=== PATIENT | female | born 2000 | race Two or more races ===

== ENCOUNTER 2024-10-25 00:43 | Emergency (ER) | payer MEDICAID, SELFPAY ==
[2024-10-25 00:44] VITALS: BMI 25.4
[2024-10-25 01:09] VITALS: BP 113/68; PULSE 125; RESP 18; TEMP 37.6; O2SAT 98
[2024-10-25] MEDS: ACETAMINOPHEN 500 MG TABLET PO (01:38)
[2024-10-25] MEDS: OSELTAMIVIR 75 MG CAPSULE PO (01:38)
--- NOTE | 2024-10-25 02:30 | PD.EDURI ---
Upper Respiratory Inf. RME/HPI General Chief Complaint: General Adult/Misc Complain Stated Complaint: LOWER BACK PAIN, FEVER,SORE THROAT Time Seen by Provider: 10/25/24 01:24 Arrival date/time: 10/25/24 00:43 24F with no significant PMH presents to ED with several days of cough, sore throat, and fevers/chills. When she coughs, her back hurts. Patient is currently , but denies SOB, dysuria, vaginal bleeding, ab/pelvic pain, and diarrhea. Limitations: no limitations Related Data Home Medications ?Medication ?Instructions ?Recorded ?Confirmed prenat.vits,teri,xbt-orst-frsgv 1 tab PO QDAY 05/20/21 05/20/21 Previous Rx's ?Medication ?Instructions ?Recorded acetaminophen 325 mg tablet (Mapap 650 mg (2 x 325 mg) PO Q4H PRN See 05/22/21 (acetaminophen)) Comments #30 tabs ibuprofen 400 mg tablet 800 mg (2 x 400 mg) PO Q8H PRN See 05/22/21 Comments #30 tabs oseltamivir 75 mg capsule (Tamiflu) 75 mg PO BID 5 days #10 caps 10/25/24 Allergies Allergy/AdvReac Type Severity Reaction Status Date / Time No Known Allergies Allergy Verified 05/20/21 03:06 Review of Systems Review of Systems Systems Reviewed: All systems reviewed, normal except as documented Constitutional Constitutional: Reports system reviewed and no additional complaints, except as documented, Reports as per HPI, Reports chills, Reports fever(s) and Denies headache(s) ENT Ears, Nose, Mouth, and Throat: Denies disequilibrium and Denies headache(s) Cardiovascular Cardiovascular: Reports system reviewed and no additional complaints, except as documented, Denies chest pain and Denies dyspnea Respiratory Respiratory: Reports system reviewed and no additional complaints, except as documented, Reports as per HPI, Reports cough and Denies dyspnea Gastrointestinal Gastrointestinal: Reports system reviewed and no additional complaints, except as documented, Denies abdominal pain, Denies nausea and Denies vomiting Musculoskeletal Musculoskeletal: Reports as per HPI and Reports back pain Neurologic Neurologic: Reports system reviewed and no additional complaints, except as documented, Denies confusion, Denies disequilibrium and Denies headache(s) Psychiatric Psychiatric: Denies confusion Past Medical History Past Medical History NEUROLOGIC: Negative Neurological Disorders CARDIAC: Negative Cardiac Disorders or Congestive Heart Failure RESPIRATORY: Negative Chronic Obstructive Pulmonary Disease (COPD) GASTROINTESTINAL: Negative Gastrointestinal Disorders or Hepatitis GENITOURINARY: Negative Genitourinary Disorders or Renal Disease MUSCULOSKELETAL: Negative Musculoskeletal Disorders ENDOCRINE: Negative Endocrine Disorders, Diabetes Mellitus Type 1 or Diabetes Mellitus Type 2 HEMATOLOGIC: Negative Blood Disorders OTHER HISTORY: Negative Hospitalization, Autoimmune Disease, Down Syndrome, Developmental Delay, Shingles, Falls, Blood Transfusions, Blood Transfusion Reaction, Anesthesia Reactions, Organ Transplant, Chemotherapy, Radiation Therapy, Hyperbaric Therapy, MRSA, VRSA, Vancomycin-Resistant Enterococci, Human Immunodeficiency Virus (HIV), Chicken Pox, Measles, Mumps, Rubella (L[place] Measles), Pertussis, Clostridium Difficile or Cancer Family History FAMILY HISTORY: Positive Family Psychiatric Problems (mother anxiety); Negative Family Respiratory Disorders, Family Gastrointestinal Problems, Family Cancer, Family Surgery or Family Anesthesia Reaction Surgical History SURGICAL: Negative Section or Organ Transplant Social History SMOKING STATUS: Never smoker SUBSTANCE USE: does not use ED Exam General Limitations: Present no limitations General appearance: Present alert and in no apparent distress Head Head exam: Present atraumatic Eye Eye exam: Present normal appearance, PERRL and EOMI ENT ENT exam: Present normal exam, normal oropharynx and mucous membranes moist Neck Neck exam: Present normal inspection, full ROM and trachea midline Chest Chest inspection: Present normal inspection and symmetric chest wall rise Respiratory Respiratory exam: Present normal lung sounds bilaterally Cardiovascular Cardiovascular exam: Present regular rate, normal rhythm and normal heart sounds Abdominal Exam Abdominal exam: Present soft and normal bowel sounds Extremities Exam Extremities exam: Present normal inspection and full ROM Back Exam Back exam: Present normal inspection and full ROM Neurological Exam Neurological exam: Present alert, oriented X3 and CN II-XII intact Psychiatric Psychiatric exam: Present normal affect and normal mood Skin Skin exam: Present warm, dry, intact and normal color Course Quality Measures none Orders Category Date Time Status Acetaminophen Tab [Tylenol ES Tab] Med 10/25/24 01:31 Discontinued 500 mg PO X1 ONE Oseltamivir [Tamiflu] Med 10/25/24 01:31 Discontinued 75 mg PO X1 ONE Vital Signs Vital signs: Vital Signs Temperature 99.6 F 10/25/24 01:09 Pulse Rate 125 H 10/25/24 01:09 Respiratory Rate 18 10/25/24 01:09 Blood Pressure 113/68 10/25/24 01:09 Pulse Oximetry (%) 98 10/25/24 01:09 O2 at 98% on RA and WNLs Upper Respiratory Infection MDM Narrative MDM Narrative:: 24F with no significant PMH presents to ED with several days of cough, sore throat, and fevers/chills. When she coughs, her back hurts. Patient is currently , but denies SOB, dysuria, vaginal bleeding, ab/pelvic pain, and diarrhea. Physical exam reveals nasal congestion, but otherwise clear ENT and lungs. Patient is afebrile, calm, and alert. Flu A+. Will give Tamiflu given status. Patient data External records reviewed:: [facility] previous records Clinical information provided by:: patient Social determinants that could affect healthcare access:: none Patient has the following chronic illnesses:: none How is presenting disease/condition affected by chronic disease/condition?: no chronic disease Evaluation data The following diagnostics were reviewed and interpreted by me:: lab results Lab and/or radiology exams considered but not ordered:: ordered Interpretation Summary: above Medications / Prescriptions Medications or Prescriptions considered but not ordered:: ordered Medication administrations:: Medication Administration History Discontinued Medications Acetaminophen (Acetaminophen 500 Mg Tablet) 500 mg PO X1 ONE Stop: 10/25/24 01:32 Last Admin: 10/25/24 01:38 Dose: 500 mg Documented By: Oseltamivir Phosphate (Oseltamivir 75 Mg Capsule) 75 mg PO X1 ONE Stop: 10/25/24 01:32 Last Admin: 10/25/24 01:38 Dose: 75 mg Documented By: above Consultations Consultation(s) initiated? (list below): No Diagnosis Upper Respiratory Differential Diagnosis: upper respiratory infection, croup, otitis media, sinusitis, viral infection, bronchitis, influenza and pharyngitis Most likely diagnosis given after review of the tests above:: flu A Admission Indicated Admission indicated?: not indicated Admission Request Was there a request for admission?: No Disposition Plan Disposition Plan: Discharge Discharge Attestation Discharge Attestation: The patient and all family members were given an opportunity to ask questions and understood the discharge instructions. Discharge instructions specifically effects, indications for sooner follow up or return to the emergency department, and the expected course of current diagnosis. Patient condition: Stable Discharge Plan Plan Patient Disposition: HOME (Self Care) Disposition Comment: Stable Prescriptions/Referrals Prescriptions/Med Rec: New oseltamivir [Tamiflu] 75 mg capsule 75 mg PO BID 5 Days Qty: 10 0RF No Action prenat.vits,teri,fhk-gjgx-kpsad Tablet 1 tab PO QDAY acetaminophen [Mapap (acetaminophen)] 325 mg Tablet 650 mg PO Q4H PRN (Reason: See Comments) Qty: 30 0RF ibuprofen 400 mg Tablet 800 mg PO Q8H PRN (Reason: See Comments) Qty: 30 0RF Problem List Clinical Impression: Influenza A Patient/Caregiver Discharge Instructions Education Materials: Influenza (Flu) and Additional Instructions: Please follow-up with PCP within 24-48 hours and return immediately if symptoms worsen. Benadryl is good for cough, congestion, and sleep. Print Language: Omani Stand Alone Forms: Patient Portal Info Letter PA/MANAGER STRATEGY & ACCOUNT Supervising Physician PA/MANAGER STRATEGY & ACCOUNT Supervising Physician: Dr. Ortiz
== END 2024-10-25 01:43 | disposition home or self-care (01) ==
LOC: SERX 01:47
PROVIDERS: Emergency Provider Emergency Medicine; PCP Family Medicine
DX: O99.519 Diseases of the respiratory system complicating pregnancy, unspecified trimester (principal); J10.1 Influenza due to other identified influenza virus with other respiratory manifestations; Z3A.00 Weeks of gestation of pregnancy not specified
CPT/HCPCS: 87400; 99282; A9270

== ENCOUNTER 2024-12-04 08:33 | Inpatient (IN) | payer MEDICAID, SELFPAY ==
[2024-12-04] VITALS (178 sets, daily range): BP systolic 96–142; BP diastolic 61–90; PULSE 73–129; RESP 18–99; TEMP 36.3–36.7; O2SAT 90–100; BMI 25.7
--- NOTE | 2024-12-04 11:36 | PD.LDHP ---
Documentation for date of: 12/04/24 OB Labor/Induct. HPI History of Present Illness Chief complaint: contractions : 2 Para: 1 Living children: 1 History of Vaginal deliveries: 1 History of sections: No History of : No TYSON: 12/09/24 Gestational Age (weeks): 39 Gestational Age (days): 2 History of present illness: came in labor and progressed / GBS positive History of Present Dating criteria: LMP confirmed by 1st trimester US Adequate Care: Yes Obstetrical complications: none and other (hypothyroid on levothyroxine ) Medical complications: other (hypothyroid on medication ) Labs Maternal Blood Type: B Pos Labs: Positive: Rubella Titre and Group Beta Strep and Negative: RPR, Hepatitis B, HIV, Chlamydia and Gonorrhea Narrative: Review of Systems Review of Systems Systems Reviewed: All systems reviewed, normal except as documented Psychiatric Psychiatric: Reports system reviewed and no additional complaints, except as documented Endocrine Endocrine: Reports system reviewed and no additional complaints, except as documented Allergic/Immunologic Allergic/Immunologic: Reports system reviewed and no additional complaints, except as documented Past Medical History Past Medical History ENDOCRINE: Positive Hypothyroidism (on levothyroxine ) Surgical History SURGICAL: Negative Section Social History SMOKING STATUS: Never smoker SUBSTANCE USE: does not use ALCOHOL: Never Meds Home Medications and Allergies Home Medications ?Medication ?Instructions ?Recorded ?Confirmed ?Type prenat.vits,teri,gkg-jadu-yzbnz 1 tab PO QDAY 05/20/21 12/04/24 History levothyroxine 88 mcg tablet 88 mcg PO QDAY 12/04/24 12/04/24 History (Euthyrox) Allergies Allergy/AdvReac Type Severity Reaction Status Date / Time No Known Allergies Allergy Verified 12/04/24 08:54 OB Exam Physical Exam Vital signs: Temp Pulse Resp BP Pulse Ox 97.4 F 83 18 118/74 99 12/04/24 08:37 12/04/24 08:43 12/04/24 08:37 12/04/24 08:43 12/04/24 09:23 OB Results Labs 12/04/24 11:59 OB Assessment & Plan Assessment and Plan (1) Active labor: Status: Acute (2) Hypothyroid in , antepartum: Status: Acute Additional Plan Induction method: none Plan: augmentation and anticipate NVD Additional Plan Comment: AROM / epidural/ GBS prophylaxis / anticipate vaginal delivery EFW is 3.5 kg
[2024-12-04] MEDS: RINGERS LACTATED 1000 ML 1,000 ML 100 ML IV (12:16)
[2024-12-04] MEDS: Ampicillin Inj 2,000 MG in SODIUM CHLORIDE 0.9% (POP) 100 ML 100 MG IV (12:16)
[2024-12-04] MEDS: fentaNYL CIT INJ 50 mCg/ML AMP 2ML 100 MCG IV ×2 (12:19→16:42)
[2024-12-04 12:59] LABS: Basophils # (Auto) 0.1 Thou/mm3 (0.0-0.2); Basophils % (Auto) 0 % (0-2.5); Eosinophils # (Auto) 0.4 Thou/mm3 (0.0-0.5); Eosinophils % (Auto) 3 % (0-10); Hematocrit 35.8 % (36.0-46.0); Hemoglobin 12.4 g/dL (12.0-16.0); Immature Granulocytes % (Auto) 0 % (0-0); Immature Granulocytes Auto 0.05 Thou/mm3 (0.00-0.00); Lymphocytes # (Auto) 1.9 Thou/mm3 (1.0-4.8); Lymphocytes % (Auto) 16 % (10-50); Mean Corpuscular HGB Conc 34.6 g/dl (31.0-37.0); Mean Corpuscular Hemoglobin 29.2 pg (25.0-35.0); Mean Corpuscular Volume 84 fL (80-100); Monocytes # (Auto) 0.6 Thou/mm3 (0.0-0.8); Monocytes % (Auto) 5 % (0-12); Neutrophils # (Auto) 8.7 Thou/mm3 (1.8-7.7); Neutrophils % (Auto) 75 % (37-80); Nucleated Red Blood Cell % 0 /100 WBC (0); Platelet Count 242 Thou/mm3 (140-440); Red Blood Count 4.25 Miln/mm3 (4.00-5.20); White Blood Count 11.7 Thou/mm3 (3.6-11.0)
[2024-12-04 13:39] LABS: Syphilis Nonreactive (Nonreactive)
[2024-12-04] MEDS: Ampicillin Inj 1,000 MG in SODIUM CHLORIDE 0.9% (Popper) 50 ML 50 MG IV ×2 (16:24→20:16)
[2024-12-05] VITALS (44 sets, daily range): BP systolic 109–139; BP diastolic 66–83; PULSE 78–114; RESP 17–20; TEMP 36.4–36.8; O2SAT 88–100
--- NOTE | 2024-12-05 00:24 | OBDSUM_ITS ---
Vacuum Assisted Delivery Additional Comments Additional comments: normal vaginal delivery, nuchal cord x 1 /first degree tear , repaired under epidural anesthesia for labor EBL is 150 cc . Data (Couch) Data Hx Section: No Maternal Blood Type: B Pos Rubella Titre: Positive RPR: Non-reactive : 2 Term: 2 : 0 : 0 Delivery Data (Couch) Labor Data Stimulated/Augmented: Yes Induction: No Method: AROM ROM Date: 12/04/24 Rupture Type: AROM Amniotic Fluid: Clear Delivery Data EDC: 12/09/24 Delivery Date: 12/05/24 Delivery Time: 00:09 Gestational age (weeks): 39 Gestational age (days): 3 Placenta Delivery Date: 12/05/24 Delivered by: Kecia Maurer Supervisor Sound Technician at delivery: No Delivery Method Delivery: Vaginal Delivery Type: Spontaneous Presentation: Vertex Position: SAEED Anesthesia Type Primary Anesthesia: Epidural Delivery Room Medications Intrapartum Medications: Antibiotics Additional Procedures repair of first degree perineal tear with 3 ,0 vicryl on SH needle Complications Complications: none Data (Couch) Data Gender: Female weight (lbs): 2313.321 g
[2024-12-05] MEDS: BENZO/LANO/ALOE (Dermoplast) 60 GM CAN 1 SPRAY TOP (00:46)
[2024-12-05] MEDS: IBUPROFEN TAB 400 MG TABLET 800 MG PO ×2 (01:40→12:43)
[2024-12-05 06:32] LABS: Basophils # (Auto) 0.1 Thou/mm3 (0.0-0.2); Basophils % (Auto) 0 % (0-2.5); Eosinophils # (Auto) 0.4 Thou/mm3 (0.0-0.5); Eosinophils % (Auto) 3 % (0-10); Hematocrit 33.2 % (36.0-46.0); Hemoglobin 11.3 g/dL (12.0-16.0); Immature Granulocytes % (Auto) 0 % (0-0); Immature Granulocytes Auto 0.05 Thou/mm3 (0.00-0.00); Lymphocytes # (Auto) 1.9 Thou/mm3 (1.0-4.8); Lymphocytes % (Auto) 14 % (10-50); Mean Corpuscular Hemoglobin 28.9 pg (25.0-35.0); Mean Corpuscular Volume 85 fL (80-100); Monocytes # (Auto) 1.1 Thou/mm3 (0.0-0.8); Monocytes % (Auto) 8 % (0-12); Neutrophils # (Auto) 10.2 Thou/mm3 (1.8-7.7); Neutrophils % (Auto) 74 % (37-80); Nucleated Red Blood Cell % 0 /100 WBC (0); Platelet Count 237 Thou/mm3 (140-440); RDW Standard Deviation 46.7 fL (36.4-46.3); Red Blood Count 3.91 Miln/mm3 (4.00-5.20); White Blood Count 13.7 Thou/mm3 (3.6-11.0)
[2024-12-05] MEDS: LEVOTHYROXINE SODIUM 88 MCG TABLET PO (06:33)
[2024-12-05] MEDS: DOCUSATE SOD 100 MG CAPSULE PO ×2 (08:29→20:53)
[2024-12-05] MEDS: PRENATAL VITAMIN/FE FUM/FA TABLET 1 TAB PO (08:29)
[2024-12-06 00:29] VITALS: BP 120/64; PULSE 83; RESP 20; TEMP 36.5; O2SAT 98
[2024-12-06] MEDS: IBUPROFEN TAB 400 MG TABLET 800 MG PO (02:38)
[2024-12-06 04:00] VITALS: BP 116/64; PULSE 67; RESP 18; TEMP 36.5; O2SAT 98
[2024-12-06] MEDS: LEVOTHYROXINE SODIUM 88 MCG TABLET PO (05:59)
[2024-12-06 08:00] VITALS: BP 113/68; PULSE 94; RESP 16; TEMP 36.3; O2SAT 97
[2024-12-06] MEDS: PRENATAL VITAMIN/FE FUM/FA TABLET 1 TAB PO (08:11)
[2024-12-06] MEDS: DOCUSATE SOD 100 MG CAPSULE PO (08:11)
--- NOTE | 2024-12-06 09:46 | PD.LDPPPRG ---
Subjective Subjective Interval history: Patient resting comfortably in the chair. Father baby at bedside holding their . Patient denies heavy bleeding cramps or significant pain overnight. Ibuprofen is taking care of her mild pain she is breast-feeding Exam Vital Signs Temp Pulse Resp BP Pulse Ox O2 Del Method 97.4 F 94 16 113/68 97 Room Air 12/06/24 08:00 12/06/24 08:00 12/06/24 08:00 12/06/24 08:00 12/06/24 08:00 12/06/24 08:00 Narrative Exam Patient appears tired and slightly pale. Fundus firm nontender extremities show 1+ edema of ankles. Objective Labs 12/05/24 06:15 Assessment & Plan Problem List (1) Hypothyroidism affecting : Status: Acute Assessment and plan: Continue levothyroxine 88 mcg p.o. daily (2) care following vaginal delivery: Status: Acute Assessment and plan: Patient is doing well and ready for discharge. She delivered little after midnight 12/05/2024. It is her second baby. Patient is breast-feeding and ready to go home. Will discharge patient at this time. Time Spent With Patient Time: Total time spent is greater than 50% in coordination of care (as documented) at patient's floor/unit and/or counseling patient: Time with patient: less than 15 minutes
--- NOTE | 2024-12-06 09:50 | PD.LDDS ---
DS: Providers Provider Date of admission: 12/04/24 08:33 Primary care physician: Lino Awan MD Admitting Provider: Kecia Maurer MD Attending Provider on Admission: Kecia Maurer MD Consults: 12/05/24 00:32 Referral Routine Comment: Attending Provider on DC: [facility]ique [facility] ([facility]) Discharging Provider: Chloe Dominique MD ([facility]) Anticipated date of discharge: 12/06/24 DS: Diagnosis Discharge Diagnosis (1) Term delivered: Status: Acute Assessment & Plan: Patient doing well. Labs and vital signs reviewed. Patient instructed on no intercourse tampons douching or bathtubs for 6 weeks. She is to call for heavy vaginal bleeding, signs of depression or severe fevers. [facility] (2) Hypothyroidism affecting : Status: Acute Problem List Completed Was Problem List Reviewed/Reconciled?: Yes Summary/Hosp Course Brief History: came in labor and progressed / GBS positive Peripartum Data Delivery Method: Normal Vaginal Delivery (By Dr Maurer 12/05/24) Episiotomy Description: None Laceration Description: yes Procedures: Small first degree laceration repaired complications: none Status at Discharge Cognitive/behavioral status at discharge: Patient is alert and oriented x 3 with no apparent distress. Functional status at discharge: independent ambulation Overall status at discharge: patient is progressing back to baseline Time Spent with Patient Time attestation: Total time spent providing and/or coordinating discharge services: Time spent: Less than 30 minutes Exam Vital Signs Temp Pulse Resp BP Pulse Ox O2 Del Method 97.4 F 94 16 113/68 97 Room Air 12/06/24 08:00 12/06/24 08:00 12/06/24 08:00 12/06/24 08:00 12/06/24 08:00 12/06/24 08:00 Narrative Exam Fundus firm nontender extremities show 1+ pitting edema of ankles Discharge Plan Plan Patient Disposition: HOME (Self Care) Disposition Comment: stable Prescriptions/Referrals Prescriptions/Med Rec: New acetaminophen [Tylenol] 325 mg Tablet 650 mg PO Q4H PRN (Reason: See Comments) Qty: 60 0RF ibuprofen 400 mg Tablet 800 mg PO Q8H PRN (Reason: See Comments) Qty: 60 0RF Vitamin 27 mg iron- 800 mcg Tablet 1 tab PO QDAY Qty: 30 0RF Continued levothyroxine [Euthyrox] 88 mcg tablet 88 mcg PO QDAY Qty: 30 0RF Discontinued prenat.vits,teri,dvs-nwmk-yfivp Tablet 1 tab PO QDAY acetaminophen [Mapap (acetaminophen)] 325 mg Tablet 650 mg PO Q4H PRN (Reason: See Comments) Qty: 30 0RF ibuprofen 400 mg Tablet 800 mg PO Q8H PRN (Reason: See Comments) Qty: 30 0RF Referrals: Lino Awan MD [Primary Care Provider] - Patient/Caregiver Discharge Instructions Discharge Activity: activity as tolerated Other Discharge Activity Instructions:: Pelvic rest for 6 weeks. No tampons intercourse douching or bathtubs for 6 weeks. Other Discharge Diet Instructions: General diet Education Materials: After a Vaginal , Understanding Blues, Nutrition While Print Language: Kiswahili Activity Restrictions/Additional Instructions: Call for heavy vaginal bleeding, fevers or signs of severe depression. Stand Alone Forms: Jaye Award Info., Patient Portal Info Letter, Work/Release Restrictions Discharge Order Discharge Orders: Discharge (Routine); Ordered 12/06/24 Ordered By: Chloe Dominique ([facility]) Planned Discharge Date 12/06/24 (2) Hypothyroidism affecting Qualifiers: Trimester: third trimester Qualified Code(s): O99.283 - Endocrine, nutritional and metabolic diseases complicating , third trimester; E03.9 - Hypothyroidism, unspecified
== END 2024-12-06 13:09 | disposition home or self-care (01) | DRG 560 ==
LOC: S4SX 12-05 01:16 → S4NX 12-05 07:25 → S4SX 12-07 08:55
PROVIDERS: Admitting Provider Obstetrics & Gynecology; PCP Family Medicine; Visit Provider Obstetrics & Gynecology
DX: O99.824 Streptococcus B carrier state complicating childbirth (principal); Z37.0 Single live birth; Z3A.39 39 weeks gestation of pregnancy; O99.284 Endocrine, nutritional and metabolic diseases complicating childbirth; O69.81X0 Labor and delivery complicated by cord around neck, without compression, not applicable or unspecified; E03.9 Hypothyroidism, unspecified; O70.0 First degree perineal laceration during delivery; Z79.890 Hormone replacement therapy
CPT/HCPCS: 36415; 59025; 59409; 59899; 85025; 86780; 86850; 86900; 86901; 94762; J0290; J2795; J3010; J7050; J7120; A9270

== ENCOUNTER 2024-12-28 10:28 | Outpatient (AMB) | payer MEDICAID, SELFPAY ==
--- NOTE | 2024-12-28 10:42 | AMB.GYNCLNOT ---
Vital Signs 12/28/24 10:43 12/28/24 10:56 Height 1.52 m Height Method Stated Weight 55.905 kg 55.9 kg Weight Measurement Method Standing Scale BMI 24.0 BP 112/80 Blood Pressure Source Automatic Cuff Blood Pressure Location Left Upper Arm Position Sitting Respiration 14 Pulse 77 Pulse Source Monitor Temp 97.7 F Temp Source Oral Pulse Oximetry (%) 95 Oxygen Delivery Method Room Air Allergies/Home Meds Allergies & Medications Allergies No Known Allergies Allergy (Verified 12/28/24 10:44) Medication Reconciliation acetaminophen 325 mg tablet (Tylenol) 650 mg (2 x 325 mg) PO Q4H PRN See Comments #60 tabs 12/06/24 [Rx Confirmed 12/28/24] ibuprofen 400 mg tablet 800 mg (2 x 400 mg) PO Q8H PRN See Comments #60 tabs 12/06/24 [Rx Confirmed 12/28/24] levothyroxine 88 mcg tablet (Euthyrox) 88 mcg PO QDAY #30 tabs 12/06/24 [Rx Confirmed 12/28/24] vits no.130-ferrous fum 27 mg iron-folic acid 800 mcg tablet ( Vitamin) 1 tab PO QDAY #30 tabs 12/06/24 [Rx Confirmed 12/28/24] Intake Visit Data Collection New Patient or Established: Established Patient (seen at [facility] within 3 years) Reason for Visit:: FOLLOW UP Seen by Clinical Staff ONLY (RN/MA): No 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 Do You Feel Safe at Home: Yes Authorities Contacted: N/A PCP or OBGYN visit in last 3 months: Yes Hx Now: No Are you currently on any form of Control: No Pain Present Currently: No Pain Scale Used: Michel-Emanuel/Numerical Pain scale:: 0 Smoking Status Smoking Status: Never smoker 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 1. Little interest or pleasure in doing things: not at all 2. Feeling down, depressed, or hopeless: not at all Total score: 0 PHQ-9 3. Trouble falling or staying asleep, or sleeping too much: Not at all 4. Feeling tired or having little energy: Not at all 5. Poor appetite or overeating: Not at all 6. Feeling bad about yourself - or that you are a failure or have let yourself or your family down: Not at all 7. Trouble concentrating on things, such as reading the newspaper or watching television: Not at all 8. Moving or speaking so slowly that other people could have noticed? - Or the opposite - being so fidgety or restless that you have been moving around a lot more than usual: not at all 9. Thoughts that you would be better off or of hurting yourself in some way: Not at all Total score: 0 Source: Developed by Drs. Varun Bush, Agnieszka Rivera, Miguel Angel Slaughter and colleagues, with an educational eduardo from [employer]. Depression screen completed yes Social History Living Situation History Marital Status: Lives With: Family Housing: House Tobacco History Smoking Status: Never smoker Second Hand Smoke Exposure: No Alcohol History Alcohol Intake: Never Domestic Abuse History Do You Feel Safe at Home: Yes Past Medical History Past Medical History Have you ever been diagnosed with any of the following: Neurological Problems Cerebrovascular Accident (CVA): No Transient Ischemic Attacks (TIA): No Dementia: No Alzheimer's Disease: No Parkinson's Disease: No Brain Tumor: No Meningitis: No Seizures: No Epilepsy: No Guillain-[place] Syndrome: No Cardiology Problems Myocardial Infarction: No Cardiac Arrhythmia: No Atrial Fibrillation: No Angina: No Heart Murmur: No Congestive Heart Failure: No Respiratory Problems Chronic Obstructive Pulmonary Disease (COPD): No Asthma: No Bronchitis: No Emphysema: No Pneumonia: No Pulmonary Fibrosis: No Tuberculosis: No Hx Cough: No Cough: No Wheezing: No Chest Deformities: No Smoking: No Smoking Cessation Counseling: No Smoking Exposure: No Tobacco Use: No Stomache/Intestinal Problems Liver Cancer: No Hepatitis: No Cirrhosis: No Pancreatic Cancer: No Celiac Disease: No Gall Bladder Disease: No Crohn's Disease: No Obstructive Bowel: No Hiatal Hernia: No Hemorrhoids: No Genital/Urinary Problems Chronic Kidney Disease: No Renal Disease: No Kidney Stones: No Reproductive Problems Breast Cancer: No Endometriosis: No Pelvic Inflammatory Disease: No Previous Pregnancies: Yes Uterine Prolapse: No Musculoskeletal Problems Muscular Dystrophy: No Myasthenia Gravis: No Marfan's Syndrome: No Bone Cancer: No Arthritis: No Rheumatoid Arthritis: No Head,Eye,Nose,Throat Problems Cataracts: No Glaucoma: No Blind: No Endocrine Problems Diabetes Mellitus Type 1: No Diabetes Mellitus Type 2: No [place]'s Syndrome: No [place]'s Disease: No Hyperthyroidism: No Hypothyroidism: Yes (on levothyroxine ) Parathyroid Disease: No Pituitary Disease: No Systemic Lupus Erythematosus: No Syndrome of Inappropriate Antidiuretic Hormone: No Adrenal Disease: No Graves' Disease: No Psychologic Problems Schizophrenia: No Recreational Drug Use: No Bipolar Disorder: No Depression: No Other Problems Hospitalization: No Down Syndrome: No Developmental Delay: No Shingles: No Falls: No Blood Transfusions: No Blood Transfusion Reaction: No Anesthesia Reactions: No Organ Transplant: No Chemotherapy: No Radiation Therapy: No Hyperbaric Therapy: No MRSA: No VRSA: No Vancomycin-Resistant Enterococci: No Human Immunodeficiency Virus (HIV): No Chicken Pox: No Measles: No Mumps: No Rubella (Lao Measles): No Pertussis: No Clostridium Difficile: No Cancer: No History of Present Illness HPI Narrative 24-year-old 2 para 2 for 3-week visit. Patient had a vaginal delivery December 05, 2024. The baby is 3 weeks today she is breast and bottlefeeding. She had a little girl that weighed 5 pounds 10 ounces. was uncomplicated. She had an epidural at 7 cm. Patient is happy. Denies any depression. Reports good bonding with the baby. Reports good help by her at home. And the other child is bonding and adjusting well. Patient would like to use either Depo shot or control pills. She like to wait till her next visit for that. And they have not had sexual intercourse yet. Pain Assessment Are you having any pain?: No Pain scale (0-10): 0 Weight: 55.9 kg Pre- Weight: 61.2 kg Symptoms Thyroid symptoms: Reports cold intolerance Other symptoms: Denies constipation, incontinence, fever(s) or other STI Risk Assessment Questions for the patient: 1. Have you ever had sex (no matter whether oral, vaginal, or anal)?: yes, 2. Do you have sex with men?: yes, 3. Do you have sex with women?: no, 4. Do you have sex with both men and women?: no, 5. Have you had sex within the last 12 months?: yes, 6. Are you in a long-term relationship in which you and your partner only have sex with each other and no one else?: yes, 7. Have you had a new partner within the last 12 months?: no, 8. Have you had multiple sexual partners within the last 12 months?: no, 9. Do you use condoms every time you have sex?: yes, 10. Do you have sex while under the influence of alcohol or drugs?: no, 11. Do you have sex in exchange for money or drugs?: no, 12. Do you use IV drugs?: no, 13. Do you have a sexual partner who has HIV, is bisexual, or uses IV drugs?: no, 14. Have you had a sexually transmitted infection?: no, 15. Have you requested testing for a sexually transmitted infection within the last 24 months?: no, 16. Have you been tested for HIV?: no and 17. Do you live in an adult correctional facility?: no Questions for the provider: 18. Does the patient live or receive medical care in a setting with a high prevalence for HIV or syphilis?: no Control Received Tdap: Yes Menses resumed: No Diet Number of meals per day: 3 Bonding With Infant Problem identified: No Depression and anxiety: NONE Problem identified: No Infant Feeding Feeding method: combination Tobacco Smoking Status: Never smoker Alcohol Alcohol: does not drink Drugs/Substances Substances: denies use Return of menses: [place] of baby: NEGRITO Gender: female Date of delivery: 12/05/24 Route of delivery: Order: novak Delivery outcome: liveborn Interim details: no feeding problems Interim complaints: none [place] concerns: none Oden score: 0 Review of Systems Review of Systems Systems Reviewed: All systems reviewed, normal except as documented Constitutional Constitutional: Denies fever(s) Gastrointestinal Gastrointestinal: Denies constipation Endocrine Endocrine: Reports cold intolerance Exam Narrative Physical exam: both breast soft, non tender, no masses, uterus well involuted. perineum intact, negative homans, 2+ DTR, no edema,no redness General Limitations: no limitations Head Head exam: atraumatic ENT ENT exam: Present normal exam Chest Chest inspection: Present normal inspection Resp Respiratory exam: Present normal lung sounds bilaterally Abdominal Abdominal exam: Present soft Exp OB exam: Present deferred Psych Psychiatric exam: Present normal affect and normal mood Assessment & Plan Diagnosis / Problem List (1) Routine Follow-Up: (2) Encounter for care and examination of mother immediately after delivery: Status: Acute Plan Increase fluids. Continue vitamins. Discussed latching with patient and I advised patient to start Brewers yeast tablets. Take 4 tabs every 4 hours. Discussed frequent feeds with patient. I gave patient the phone number for the breast-feeding clinic. And I discussed pumping between feeds to improve milk supply. Advised on no sex. And I reviewed the Depo shot with patient. Return in 3 weeks for initiation of control Additional Plan Follow Up: 3 Weeks ( control start) Office Procedures [facility] Level of Care Nursing/Assessment Patient Status: Established Patient Nursing Assessment/Reassessment: Medication Reconciliation, Update PMH in EMR and Vital Signs Coordination of Care: Complex Care and Chronic Disease 1-5, Consent,records obtained, informed consent, Education Simp Pt/Fam, Lab and Imaging orders, Results/Orders obtained and Staff clarify orders Established Patient Charge Established Patient Point Assignment: 105 Established Patient Point Charge: EP Level 3 (80-115)
[2024-12-28 10:43] VITALS: BP 112/80; PULSE 77; RESP 14; TEMP 36.5; O2SAT 95; BMI 24.0
== END 2024-12-28 11:11 | disposition home or self-care (01) ==
LOC: HODSOBC 10:28
PROVIDERS: PCP Family Medicine; Referring Provider Family Medicine; Supervising Provider Advanced Practice Midwife; Visit Provider Advanced Practice Midwife
DX: Z39.2 Encounter for routine postpartum follow-up (principal)
CPT/HCPCS: 99213; G0463

== ENCOUNTER 2025-01-18 09:48 | Outpatient (AMB) | payer MEDICAID, SELFPAY ==
--- NOTE | 2025-01-18 10:06 | GYNCLNT_ITS ---
Vital Signs 01/18/25 10:18 Height 1.55 m Height Method Stated Weight 55.565 kg Weight Measurement Method Standing Scale BMI 23.1 BP 105/69 Blood Pressure Source Automatic Cuff Blood Pressure Location Left Upper Arm Position Sitting Respiration 18 Pulse 95 Pulse Source Monitor Temp 98.8 F Temp Source Oral Pulse Oximetry (%) 95 Oxygen Delivery Method Room Air Allergies/Home Meds Allergies & Medications Allergies No Known Allergies Allergy (Verified 01/18/25 10:07) Medication Reconciliation acetaminophen 325 mg tablet (Tylenol) 650 mg (2 x 325 mg) PO Q4H PRN See Comments #60 tabs 12/06/24 [Rx Confirmed 01/18/25] ibuprofen 400 mg tablet 800 mg (2 x 400 mg) PO Q8H PRN See Comments #60 tabs 12/06/24 [Rx Confirmed 01/18/25] levothyroxine 88 mcg tablet (Euthyrox) 88 mcg PO QDAY #30 tabs 12/06/24 [Rx Confirmed 01/18/25] vits no.130-ferrous fum 27 mg iron-folic acid 800 mcg tablet ( Vitamin) 1 tab PO QDAY #30 tabs 12/06/24 [Rx Confirmed 01/18/25] Intake Visit Data Collection New Patient or Established: Established Patient (seen at [facility] within 3 years) Reason for Visit:: control Depo Seen by Clinical Staff ONLY (RN/MA): No Hotel 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: No Do You Feel Safe at Home: Yes Authorities Contacted: N/A PCP or OBGYN visit in last 3 months: Yes Hx Now: No Are you currently on any form of Control: No Pain Present Currently: No Pain Scale Used: Michel-Emanuel/Numerical Pain scale:: 0 Smoking Status Smoking Status: Never smoker 3Rd Mate history 3Rd Mate History Menstrual regularity: regular Flow: normal Monthly: Yes How many days does period last: 5 Age at menarche: 10 Menopausal: No Currently sexually active: No If not currently sexually active, have you ever been sexually active: Yes Questionnaires Covid-19 Vaccine Questionnaire Has patient been vacinated for Covid-19 Have you been vacinated for Covid-19: Yes PHQ-9 PHQ-2 Over the last 2 weeks, how often have you been bothered by any of the following problems? 1. Little interest or pleasure in doing things: not at all 2. Feeling down, depressed, or hopeless: not at all Total score: 0 PHQ-9 3. Trouble falling or staying asleep, or sleeping too much: Not at all 4. Feeling tired or having little energy: Not at all 5. Poor appetite or overeating: Not at all 6. Feeling bad about yourself - or that you are a failure or have let yourself or your family down: Not at all 7. Trouble concentrating on things, such as reading the newspaper or watching television: Not at all 8. Moving or speaking so slowly that other people could have noticed? - Or the opposite - being so fidgety or restless that you have been moving around a lot more than usual: not at all 9. Thoughts that you would be better off or of hurting yourself in some way: Not at all Source: Developed by Drs. Varun Bush, Agnieszka Rivera, Miguel Angel Slaughter and colleagues, with an educational eduardo from [employer]. Depression screen completed yes Social History Living Situation History Lives With: Family Housing: House Tobacco History Smoking Status: Never smoker Second Hand Smoke Exposure: No Alcohol History Alcohol Intake: Never Domestic Abuse History Do You Feel Safe at Home: Yes Past Medical History Past Medical History Have you ever been diagnosed with any of the following: Neurological Problems Cerebrovascular Accident (CVA): No Transient Ischemic Attacks (TIA): No Dementia: No Alzheimer's Disease: No Parkinson's Disease: No Brain Tumor: No Meningitis: No Seizures: No Epilepsy: No Guillain-[place] Syndrome: No Cardiology Problems Myocardial Infarction: No Cardiac Arrhythmia: No Atrial Fibrillation: No Angina: No Heart Murmur: No Congestive Heart Failure: No Respiratory Problems Chronic Obstructive Pulmonary Disease (COPD): No Asthma: No Bronchitis: No Emphysema: No Pneumonia: No Pulmonary Fibrosis: No Tuberculosis: No Hx Cough: No Cough: No Wheezing: No Chest Deformities: No Smoking: No Smoking Cessation Counseling: No Smoking Exposure: No Tobacco Use: No Stomache/Intestinal Problems Liver Cancer: No Hepatitis: No Cirrhosis: No Pancreatic Cancer: No Celiac Disease: No Gall Bladder Disease: No Crohn's Disease: No Obstructive Bowel: No Hiatal Hernia: No Hemorrhoids: No Genital/Urinary Problems Renal Disease: No Kidney Stones: No Reproductive Problems Breast Cancer: No Endometriosis: No Pelvic Inflammatory Disease: No Previous Pregnancies: Yes Uterine Prolapse: No Musculoskeletal Problems Muscular Dystrophy: No Myasthenia Gravis: No Marfan's Syndrome: No Bone Cancer: No Arthritis: No Rheumatoid Arthritis: No Head,Eye,Nose,Throat Problems Cataracts: No Glaucoma: No Blind: No Endocrine Problems Diabetes Mellitus Type 1: No Diabetes Mellitus Type 2: No [place]'s Syndrome: No [place]'s Disease: No Hyperthyroidism: No Hypothyroidism: Yes (on levothyroxine ) Parathyroid Disease: No Pituitary Disease: No Systemic Lupus Erythematosus: No Syndrome of Inappropriate Antidiuretic Hormone: No Adrenal Disease: No Graves' Disease: No Psychologic Problems Schizophrenia: No Recreational Drug Use: No Bipolar Disorder: No Depression: No Other Problems Hospitalization: No Down Syndrome: No Developmental Delay: No Shingles: No Falls: No Blood Transfusions: No Blood Transfusion Reaction: No Anesthesia Reactions: No Organ Transplant: No Chemotherapy: No Radiation Therapy: No Hyperbaric Therapy: No MRSA: No VRSA: No Vancomycin-Resistant Enterococci: No Human Immunodeficiency Virus (HIV): No Chicken Pox: No Measles: No Mumps: No Rubella ([place] Measles): No Pertussis: No Clostridium Difficile: No Cancer: No History of Present Illness HPI Narrative 24-year-old 2 para 2 for initiation of Depo-Provera. Patient is 6 weeks . She delivered a baby girl December 05, 2024. She has not really resumed sexual activity. No resumption of menses. Denies any existing chronic health issues. Denies social habits. And denies surgeries. No contra indications for Depo-Provera Review of Systems Review of Systems Systems Reviewed: All systems reviewed, normal except as documented Exam Narrative Physical exam: negative preg test General Limitations: no limitations General Appearance: alert, in no apparent distress, comfortable, cooperative, healthy appearing, well developed and well groomed Resp Respiratory exam: Present normal lung sounds bilaterally Card Cardiovascular exam: Present regular rate, normal rhythm and normal heart sounds Abdominal Abdominal exam: Present soft and normal bowel sounds Psych Psychiatric exam: Present normal affect and normal mood Results Objective Laboratory: negative preg test Assessment & Plan Diagnosis / Problem List (1) Encounter for Depo-Provera contraception: Status: Acute Plan Dwpo provera 150 today. condom x 2 week. review method and side effect. walk 40 minute daily. continue multi vitamin, vitamin D and calcium. rtc 12 week for repeat depo and pap Additional Plan Follow Up: 12 Weeks (repeat depo and pap) Office Procedures OB Clinic LOC & Office Proc's Nursing/Assessment Patient Status: Established Patient OB Clinic Nursing Assessment: Medication Reconciliation, Update PMH in EMR and Vital Signs OB Clinic Coordination of Care: Complex Care and Chronic Disease 1-5, Consent,records obtained, informed consent, Education Simp Pt/Fam, Results/Orders obtained and Staff clarify orders Miscellaneous Interventions: Blood/Urine Collection Established Patient Charge Established Patient Point Assignment: 120 Established Patient Point Charge: EP Level 4 (120-155) Injection/Vaccine Admin Admin 1st Vaccine: Yes Urine HCG Ambulatory Location Ambulatory Dept Location: OB Clinic Urine HCG HCG: Yes Office Meds Depo-Provera 150 mg/mL intramuscular syringe Performing Provider: Hawa Agosto CNM Performing Location: [facility] Administered by: Shabana Rojas MA on 01/18/25 10:23 Dose Route Admin Location Dispensed Lot Number Expiration Date 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
[2025-01-18 10:18] VITALS: BP 105/69; PULSE 95; RESP 18; TEMP 37.1; O2SAT 95; BMI 23.1
== END 2025-01-18 10:25 | disposition home or self-care (01) ==
LOC: HODSOBC 09:48
PROVIDERS: PCP Family Medicine; Referring Provider Family Medicine; Supervising Provider Advanced Practice Midwife; Visit Provider Advanced Practice Midwife
DX: Z30.013 Encounter for initial prescription of injectable contraceptive (principal)
CPT/HCPCS: 90471; 96372; 99214; J3490; G0463

== ENCOUNTER 2025-04-12 08:44 | Outpatient (AMB) | payer MEDICAID, SELFPAY ==
[2025-04-12 08:59] VITALS: BP 123/78; PULSE 94; RESP 17; TEMP 36.6; O2SAT 97; BMI 24.7
--- NOTE | 2025-04-12 08:59 | AMB.GYNCLNOT ---
Vital Signs 04/12/25 08:59 Height 1.52 m Height Method Stated Weight 57.323 kg Weight Measurement Method Standing Scale BMI 24.7 BP 123/78 Blood Pressure Source Automatic Cuff Blood Pressure Location Right Upper Arm Position Sitting Respiration 17 Pulse 94 Pulse Source Monitor Temp 97.8 F Temp Source Temporal Artery Scan Pulse Oximetry (%) 97 Oxygen Delivery Method Room Air Allergies/Home Meds Allergies & Medications Allergies No Known Allergies Allergy (Verified 04/12/25 09:00) Medication Reconciliation levothyroxine 88 mcg tablet (Euthyrox) 88 mcg PO QDAY #30 tabs 12/06/24 [Rx Confirmed 04/12/25] Intake Visit Data Collection New Patient or Established: Established Patient (seen at [facility] within 3 years) Reason for Visit:: LULU Seen by Clinical Staff ONLY (RN/MA): No Loans Consultant Required: No Do You Feel Safe at Home: Yes Authorities Contacted: N/A PCP or OBGYN visit in last 3 months: Yes Date of Last PCP or OBGYN visit: 01/18/25 Hx Now: No Are you currently on any form of Control: Yes Last menstrual period: 03/01/25 Pain Present Currently: No Pain Scale Used: Michel-Emanuel/Numerical Pain scale:: 0 Smoking Status Smoking Status: Never smoker 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 Menstrual regularity: regular Flow: normal Monthly: Yes How many days does period last: 5 Age at menarche: 10 Menopausal: No Currently sexually active: No If not currently sexually active, have you ever been sexually active: Yes 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 1. Little interest or pleasure in doing things: not at all 2. Feeling down, depressed, or hopeless: not at all Total score: 0 PHQ-9 3. Trouble falling or staying asleep, or sleeping too much: Not at all 4. Feeling tired or having little energy: Not at all 5. Poor appetite or overeating: Not at all 6. Feeling bad about yourself - or that you are a failure or have let yourself or your family down: Not at all 7. Trouble concentrating on things, such as reading the newspaper or watching television: Not at all 8. Moving or speaking so slowly that other people could have noticed? - Or the opposite - being so fidgety or restless that you have been moving around a lot more than usual: not at all 9. Thoughts that you would be better off or of hurting yourself in some way: Not at all Total score: 0 If you checked off any problems, how difficult have these problems made it for you to do your work, take care of things at home, or get along with other people?: not difficult at all Source: Developed by Drs. Varun Bush, Agnieszka Rivera, Miguel Angel Slaughter and colleagues, with an educational eduardo from [employer]. Depression screen completed yes Social History Living Situation History Marital Status: Life Partner Lives With: Family Housing: House Tobacco History Smoking Status: Never smoker Second Hand Smoke Exposure: No Alcohol History Alcohol Intake: Never Domestic Abuse History Do You Feel Safe at Home: Yes History of Present Illness HPI Narrative 24-year-old 2 para 2 for repeat Depo. Last Depo was January 2025. Patient had withdrawal bleeding a week ago and prior to that spotting. Last sex 2 days ago. Patient has a history of hypothyroid and she is taking levothyroxine 88 mg daily. Denies social habits. Denies surgery. And she has no interval FOOD TRADES ASSISTANTS complaints. Patient is happy with method and she does not want children right now Review of Systems Review of Systems Systems Reviewed: All systems reviewed, normal except as documented Exam Narrative Physical exam: negative preg test General Limitations: no limitations General Appearance: alert, in no apparent distress, comfortable, cooperative, healthy appearing, well developed and well groomed Head Head exam: atraumatic, normocephalic and normal inspection Chest Chest inspection: Present normal inspection and symmetric chest wall rise Resp Respiratory exam: Present normal lung sounds bilaterally Card Cardiovascular exam: Present regular rate, normal rhythm and normal heart sounds Psych Psychiatric exam: Present normal affect and normal mood Results Objective Laboratory: neg preg test Office Procedures OB Clinic LOC & Office Proc's Nursing/Assessment Patient Status: Established Patient OB Clinic Nursing Assessment: Medication Reconciliation, Update PMH in EMR and Vital Signs OB Clinic Coordination of Care: Complex Care and Chronic Disease 1-5, Consent,records obtained, informed consent, Education Simp Pt/Fam, Results/Orders obtained and Staff clarify orders Established Patient Charge Established Patient Point Assignment: 90 Established Patient Point Charge: EP Level 3 (80-115) Injection/Vaccine Admin SQ Im Injection: Yes Office Meds Depo-Provera 150 mg/mL intramuscular syringe Performing Provider: Hawa Agosto CNM Performing Location: [facility] Administered by: Nathaly Duran MA on 04/12/25 15:45 Dose Route Admin Location Dispensed Lot Number Expiration Date [facility] Manager Restaurant 150 mg IM RIGHT DELTOID 1 mL [id number] 08/15/28 67693-252-51 [facility] [facility] Results Urine HCG Urine HCG Negative Last Edit by Nathaly Duran MA on 04/12/25 09:06 Assessment & Plan Diagnosis / Problem List (1) Encounter for Depo-Provera contraception: Status: Acute Plan Depo-Provera 150 mg IM today. Reviewed method and side effects. Discussed continuing vitamin D and calcium. Walk 40 minutes a day. Return in treatment 12 weeks repeat Depo Additional Plan Follow Up: 12 Weeks (depo)
== END 2025-04-12 09:19 | disposition home or self-care (01) ==
LOC: HODSOBC 08:44
PROVIDERS: PCP Family Medicine; Referring Provider Family Medicine; Supervising Provider Advanced Practice Midwife; Visit Provider Advanced Practice Midwife
DX: Z30.42 Encounter for surveillance of injectable contraceptive (principal); E03.9 Hypothyroidism, unspecified; Z79.890 Hormone replacement therapy
CPT/HCPCS: 96372; 99213; J3490; G0463

== ENCOUNTER 2025-07-09 11:28 | Outpatient (AMB) | payer MEDICAID, SELFPAY ==
[2025-07-09 11:36] VITALS: BP 126/79; PULSE 88; RESP 18; TEMP 36.2; O2SAT 98; BMI 24.6
--- NOTE | 2025-07-09 11:36 | AMB.GYNCLNOT ---
Vital Signs 07/09/25 11:36 Height 1.52 m Height Method Stated Weight 56.869 kg Weight Measurement Method Standing Scale BMI 24.6 BP 126/79 Blood Pressure Source Automatic Cuff Blood Pressure Location Left Upper Arm Position Sitting Respiration 18 Pulse 88 Pulse Source Monitor Temp 97.2 F Temp Source Oral Pulse Oximetry (%) 98 Oxygen Delivery Method Room Air Allergies/Home Meds Allergies & Medications Allergies No Known Allergies Allergy (Verified 07/09/25 11:37) Medication Reconciliation levothyroxine 88 mcg tablet (Euthyrox) 88 mcg PO QDAY #30 tabs 12/06/24 [Rx Confirmed 07/09/25] Intake Visit Data Collection New Patient or Established: Established Patient (seen at [facility] within 3 years) Reason for Visit:: OBC Seen by Clinical Staff ONLY (RN/MA): No User Interface Developer Required: No Do You Feel Safe at Home: Yes Authorities Contacted: N/A PCP or OBGYN visit in last 3 months: Yes Date of Last PCP or OBGYN visit: 04/12/25 Hx Now: No Are you currently on any form of Control: No Pain Present Currently: No Pain Scale Used: Michel-Emanuel/Numerical Pain scale:: 0 Smoking Status Smoking Status: Never smoker Immunizations Flu Vaccine in the Last 12 Months: No Flu Vaccine Exclusion Criteria: No Exclusion Criteria Instructor Painting history Instructor Painting History Menstrual regularity: regular Flow: normal Monthly: No Currently sexually active: No 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 1. Little interest or pleasure in doing things: not at all 2. Feeling down, depressed, or hopeless: not at all Total score: 0 PHQ-9 8. Moving or speaking so slowly that other people could have noticed? - Or the opposite - being so fidgety or restless that you have been moving around a lot more than usual: not at all Source: Developed by Drs. Varun Bush, Agnieszka Rivera, Miguel Angel Slaughter and colleagues, with an educational eduardo from [employer]. Social History Living Situation History Lives With: Family Housing: House Tobacco History Smoking Status: Never smoker Second Hand Smoke Exposure: No Alcohol History Alcohol Intake: Never Domestic Abuse History Do You Feel Safe at Home: Yes History of Present Illness HPI Narrative 24-year-old 2 para 2 for repeat Depo. Her last Depo was given April 12, 2025 so she is on time. She reports some irregular spotting since Saturday. 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 Denies ACHES. Patient is happy with the method and she would like another Depo. Patient reports that it has been 4 years since her Pap. Denies any existence of chronic illness. Denies social habits. Denies surgeries Review of Systems Review of Systems Systems Reviewed: All systems reviewed, normal except as documented Exam General Limitations: no limitations General Appearance: alert, in no apparent distress, comfortable, cooperative, healthy appearing, well developed and well groomed Head Head exam: atraumatic, normocephalic and normal inspection Neck Neck exam: Present normal inspection, full ROM and trachea midline Chest Chest inspection: Present normal inspection and symmetric chest wall rise Resp Respiratory exam: Present normal lung sounds bilaterally Psych Psychiatric exam: Present normal affect and normal mood Results Objective Laboratory: negative preg test Office Procedures OBC Clinic LOC & Office Proc's Nursing/Assessment Patient Status: Established Patient OB Clinic Nursing Assessment: Medication Reconciliation, Update PMH in EMR and Vital Signs OB Clinic Coordination of Care: Consent,records obtained, informed consent, Lab and Imaging orders, Results/Orders obtained and Staff clarify orders Miscellaneous Interventions: Blood/Urine Collection Established Patient Charge Established Patient Point Assignment: 95 Established Patient Point Charge: EP Level 3 (80-115) Office Meds Depo-Provera 150 mg/mL intramuscular syringe Performing Provider: Hawa Agosto CNM Performing Location: [facility] 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 Reviewed method and side effects. Walk 40 minutes a day. Continue vitamin D and calcium daily. Return in 3 weeks repeat Depo and Pap. Discussed safe sex Additional Plan Follow Up: 3 Months (depo and pap)
== END 2025-07-09 13:01 | disposition home or self-care (01) ==
LOC: HODSOBC 11:28
PROVIDERS: PCP Advanced Practice Midwife; Referring Provider Advanced Practice Midwife; Supervising Provider Advanced Practice Midwife; Visit Provider Advanced Practice Midwife
DX: Z30.42 Encounter for surveillance of injectable contraceptive (principal)
CPT/HCPCS: 96372; 99213; J3490; G0463

== ENCOUNTER 2025-09-15 14:37 | Outpatient (AMB) | payer MEDICAID, SELFPAY ==
[2025-09-15 14:56] VITALS: BP 109/78; PULSE 80; RESP 18; TEMP 36.2; O2SAT 98; BMI 24.6
--- NOTE | 2025-09-15 14:56 | AMB.GYNCLNOT ---
Vital Signs 09/15/25 14:56 Height 1.52 m Height Method Stated Weight 56.869 kg Weight Measurement Method Standing Scale BMI 24.6 BP 109/78 Blood Pressure Source Automatic Cuff Blood Pressure Location Right Upper Arm Position Right Lateral Respiration 18 Pulse 80 Pulse Source Monitor Temp 97.2 F Temp Source Oral Pulse Oximetry (%) 98 Oxygen Delivery Method Room Air Allergies/Home Meds Allergies & Medications Allergies No Known Allergies Allergy (Verified 09/15/25 14:59) Medication Reconciliation levothyroxine 88 mcg tablet (Euthyrox) 88 mcg PO QDAY #30 tabs 12/06/24 [Rx Confirmed 09/15/25] Intake Visit Data Collection New Patient or Established: Established Patient (seen at [facility] within 3 years) Reason for Visit:: DEPO TEST NEG Seen by Clinical Staff ONLY (RN/MA): No Management Expert Required: No Do You Feel Safe at Home: Yes Authorities Contacted: N/A PCP or OBGYN visit in last 3 months: Yes Date of Last PCP or OBGYN visit: 07/09/25 Hx Now: No Are you currently on any form of Control: No Last menstrual period: 09/03/25 Pain Present Currently: No Pain Scale Used: Michel-Emanuel/Numerical Pain scale:: 0 Smoking Status Smoking Status: Never smoker Immunizations Flu Vaccine in the Last 12 Months: No Flu Vaccine Exclusion Criteria: Refused by Patient 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 History Menstrual regularity: irregular Flow: normal Monthly: Yes Age at menarche: 11 Menopausal: No Currently sexually active: Yes Additional comments: periods are irregular on depo Provera bu not bothersome 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 1. Little interest or pleasure in doing things: not at all 2. Feeling down, depressed, or hopeless: not at all Total score: 0 PHQ-9 3. Trouble falling or staying asleep, or sleeping too much: Not at all 4. Feeling tired or having little energy: Not at all 5. Poor appetite or overeating: Not at all 6. Feeling bad about yourself - or that you are a failure or have let yourself or your family down: Not at all 7. Trouble concentrating on things, such as reading the newspaper or watching television: Not at all 8. Moving or speaking so slowly that other people could have noticed? - Or the opposite - being so fidgety or restless that you have been moving around a lot more than usual: not at all 9. Thoughts that you would be better off or of hurting yourself in some way: Not at all Total score: 0 If you checked off any problems, how difficult have these problems made it for you to do your work, take care of things at home, or get along with other people?: not difficult at all Source: Developed by Drs. Varun Bush, Agnieszka Rivera, Miguel Angel Slaughter and colleagues, with an educational eduardo from [employer]. Depression screen completed yes Social History Living Situation History Lives With: Family Housing: House Tobacco History Smoking Status: Never smoker Second Hand Smoke Exposure: No Alcohol History Alcohol Intake: Never Domestic Abuse History Do You Feel Safe at Home: Yes History of Present Illness HPI Narrative 25 years P2 on depo Provera x 3 injection today/ late by 1 week / she had a withdrawal bleeding episode / urine preg test negative in office / received HPv Vaccine / has no complaints / Depo Provera today LPS 2 years ago Review of Systems Review of Systems Systems Reviewed: All systems reviewed, normal except as documented Exam Narrative Physical exam: Alert and oriented x 3 no shortness of breath Pain no chest pain no palpitations CVS regular rate and rhythm No CVAT Abdomen nontender, normal bowel sounds No guarding no rigidity No hernias Office Procedures OBC Clinic LOC & Office Proc's Nursing/Assessment Patient Status: Established Patient OB Clinic Nursing Assessment: Medication Reconciliation, Update PMH in EMR and Vital Signs OB Clinic Coordination of Care: Complex Care and Chronic Disease 1-5, Consent,records obtained, informed consent, Education Simp Pt/Fam, Lab and Imaging orders, Results/Orders obtained and Staff clarify orders Established Patient Charge Established Patient Point Assignment: 105 Established Patient Point Charge: EP Level 3 (80-115) Office Meds Depo-Provera 150 mg/mL intramuscular syringe Performing Provider: Kecia Maurer MD Performing Location: [facility] 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
== END 2025-09-15 15:15 | disposition home or self-care (01) ==
LOC: HODSOBC 14:37
PROVIDERS: Supervising Provider Obstetrics & Gynecology; Visit Provider Obstetrics & Gynecology
DX: Z30.42 Encounter for surveillance of injectable contraceptive (principal)
CPT/HCPCS: 96372; 99213; J3490; G0463